=== PATIENT | male | born 1985 | race Two or more races ===

== ENCOUNTER 2019-07-29 06:40 | Day surgery (SDC) | payer OTHER ==
[2019-07-29] MEDS ORDERED: PROTONIX40 MG PO (08:15)
== END 2019-07-29 09:30 | disposition home or self-care (01) ==
LOC: AMB-ENDOS 06:40
DX: D13.1 Benign neoplasm of stomach (principal); K44.9 Diaphragmatic hernia without obstruction or gangrene